=== PATIENT | female | born 1960 | race Caucasian/White ===

== ENCOUNTER → 2017-05-27 | Outpatient (CLI) | payer BC ==
--- NOTE | 2017-05-27 16:55 | DIAGNOSTIC IMAGING REPORT ---
RIGHT KNEE 4 OR MORE CLINICAL HISTORY: RIGHT KNEE PAIN Right COMPARISON STUDY: Bilateral knees 08/19/2015. FINDINGS: No change in the severe cartilage space narrowing within the medial compartment of the right knee with [id number] articulation. There is also mild cartilage space narrowing within the lateral compartment and tricompartmental marginal osteophytes. There is mild cartilage space narrowing within the lateral patellofemoral compartment. Mild osteoarthritis within the left knee, unchanged. No fracture or dislocation within the right knee. No significant knee effusion. Soft tissues are remarkable. IMPRESSION: No significant change in the tricompartmental osteoarthritis within the right knee most severe at the medial compartment which demonstrates [id number] articulation. Electronically signed by: Joe Lopez M.D. 05/27/2017 4:53 PM Dictated Date/Time: 05/27/2017 4:51 PM
== END | disposition home or self-care (01) ==
LOC: C.RDSM 16:15
PROVIDERS: ATTEND Physician Assistant
DX: M17.11 Unilateral primary osteoarthritis, right knee (principal)

== ENCOUNTER → 2018-05-02 | Outpatient (CLI) | payer BC ==
--- NOTE | 2018-05-02 15:21 | DIAGNOSTIC IMAGING REPORT ---
PELVIC COMPLETE NON OB CLINICAL HISTORY: 58 years-old Female presenting with POST MENOPAUSAL BLEEDING, , history of partial hysterectomy in 2007. TECHNIQUE: Real-time grayscale and color and spectral Doppler ultrasound imaging of the pelvis was performed first using a transabdominal probe and subsequently transvaginal for better characterization. COMPARISON: None. FINDINGS: Uterus: Postsurgical changes of hysterectomy. Nabothian cysts in the residual cervix. Right adnexa: Right ovary not visualized. Left adnexa: Left ovary not visualized. Other: No free fluid. IMPRESSION: Nonvisualization of the ovaries. Postsurgical changes of partial hysterectomy. Electronically signed by: Noah Mccall M.D. 05/02/2018 3:20 PM Dictated Date/Time: 05/02/2018 3:19 PM
== END | disposition home or self-care (01) ==
LOC: C.ULTR 14:34
PROVIDERS: ATTEND Family Medicine
DX: N95.0 Postmenopausal bleeding (principal); Z90.711 Acquired absence of uterus with remaining cervical stump